=== PATIENT | male | born 2005 | race Caucasian/White ===

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

== ENCOUNTER 2023-05-03 12:41 | Emergency (ER) | payer BC ==
[~2023-05-03] VITALS: Ht 172.7 cm; Wt 59.0 kg
[2023-05-03 13:41] LABS: BILIRUBIN Negative (Negative); BLOOD Negative (Negative); CLARITY Turbid (Clear); COLOR Yellow (Yellow); GLUCOSE Negative (Negative); KETONE Negative (Negative); LEUKO ESTERASE Negative (Negative); NITRITE Negative (Negative); PH 7.5 (4.5-8.0)
[2023-05-03 14:06] LABS: BACTERIA TRACE; WBC 0-2 wbc/hpf (0-5)
== END 2023-05-03 14:50 | disposition home or self-care (01) ==
LOC: ED 12:41
PROVIDERS: Physician Assistant Medical
DX: S00.83XA Contusion of other part of head, initial encounter (principal); R31.9 Hematuria, unspecified; R42 Dizziness and giddiness; W10.8XXA Fall (on) (from) other stairs and steps, initial encounter; Y93.89 Activity, other specified; Y92.89 Other specified places as the place of occurrence of the external cause; Y99.8 Other external cause status

== ENCOUNTER 2023-06-11 21:10 | Emergency (ER) | payer BC ==
[~2023-06-11] VITALS: Ht 170.1 cm; Wt 59.0 kg
[2023-06-11] MEDS ORDERED: NAPROXEN250 MG PO (23:31)
== END 2023-06-11 23:18 | disposition home or self-care (01) ==
LOC: ED 21:10
DX: S60.222A Contusion of left hand, initial encounter (principal); Z98.890 Other specified postprocedural states; X58.XXXA Exposure to other specified factors, initial encounter; Y93.89 Activity, other specified; Y92.009 Unspecified place in unspecified non-institutional (private) residence as the place of occurrence of the external cause; Y99.8 Other external cause status

== ENCOUNTER 2025-02-14 17:32 | Emergency (ER) | payer BC ==
[~2025-02-14] VITALS: Wt 63.5 kg
[~2025-02-14 17:32] MED LIST changes: +NAPROXEN250 MG PO
[2025-02-14] MEDS ORDERED: Acetaminophen/Hydrocodone 5 MG/325 MG TABLET PO ONE (18:55)
[2025-02-14] MEDS ORDERED: NAPROSYN500 MG PO (19:23)
== END 2025-02-14 19:26 | disposition home or self-care (01) ==
LOC: ED 17:32
DX: S60.221A Contusion of right hand, initial encounter (principal); W01.0XXA Fall on same level from slipping, tripping and stumbling without subsequent striking against object, initial encounter; Y93.89 Activity, other specified; Y92.89 Other specified places as the place of occurrence of the external cause; Y99.8 Other external cause status

== ENCOUNTER 2025-04-01 18:17 | Emergency (ER) | payer BC ==
[~2025-04-01] VITALS: Ht 170.1 cm; Wt 63.5 kg
[~2025-04-01 18:17] MED LIST changes: +NAPROSYN500 MG PO
[2025-04-01] MEDS ORDERED: AMOXICILLIN500 M2 PO (19:12)
[2025-04-01] MEDS ORDERED: MELOXICAM7.5 MG PO (19:12)
[2025-04-01] MEDS ORDERED: AMOXICILLIN 500 MG CAP PO ONE (19:15)
== END 2025-04-01 19:31 | disposition home or self-care (01) ==
LOC: ED 18:17
DX: K02.9 Dental caries, unspecified (principal)